=== PATIENT | male | born 1960 | race African-American/Black ===

== ENCOUNTER 2019-12-16 07:53 | Emergency (ER) | payer SELFPAY ==
[~2019-12-16] VITALS: Ht 190.5 cm; Wt 106.8 kg
[~2019-12-16 07:53] MED LIST: PERCT PO
[2019-12-16] MEDS ORDERED: LIDOCAINE 5% TRANSDERMAL PATCH TD ONE (10:15)
[2019-12-16] MEDS ORDERED: KETOROLAC TROMETHAMINE 60 MG/2 ML VIAL IM ONE (10:15)
[2019-12-16 10:45] VITALS: BP 160/78
== END 2019-12-16 11:27 | disposition home or self-care (01) ==
LOC: EMS 07:54
DX: M25.511 Pain in right shoulder (principal); M25.522 Pain in left elbow; F17.210 Nicotine dependence, cigarettes, uncomplicated; I10 Essential (primary) hypertension
CPT/HCPCS: 73030; 73080; 96372; 99284; 99406; J1885

== ENCOUNTER 2019-12-24 05:41 | Emergency (ER) | payer MEDICAID ==
[~2019-12-24] VITALS: Ht 188 cm; Wt 102.3 kg
[2019-12-24] MEDS ORDERED: KETOROLAC TROMETHAMINE 60 MG/2 ML VIAL IM ONE (07:45)
[2019-12-24 08:17] VITALS: BP 136/65
== END 2019-12-24 08:39 | disposition home or self-care (01) ==
LOC: EMS 05:41
DX: S52.025A Nondisplaced fracture of olecranon process without intraarticular extension of left ulna, initial encounter for closed fracture (principal); F17.210 Nicotine dependence, cigarettes, uncomplicated; Z79.899 Other long term (current) drug therapy; W18.39XA Other fall on same level, initial encounter; Y93.89 Activity, other specified; Y92.89 Other specified places as the place of occurrence of the external cause; Y99.8 Other external cause status
CPT/HCPCS: 29105; 73080; 96372; 99283; 99406; J1885